=== PATIENT | female | born 1970 | race Two or more races ===

== ENCOUNTER 2024-08-20 11:19 | Emergency (ER) | payer OTHER ==
[2024-08-20 11:31] VITALS: BP 126/81; PULSE 73; RESP 18; TEMP 98.2; BMI 25.3
[2024-08-20 12:15] LABS: EPI CELLS 5 /uL (0-25.1); HYALINE CASTS 0 /uL (0-3.1); URINE APPEARANCE CLEAR; URINE BILIRUBIN 1+ (NEGATIVE); URINE COLOR ORANGE; URINE GLUCOSE (UA) NEGATIVE (NEGATIVE); URINE KETONE NEGATIVE (NEGATIVE); URINE LEUK ESTERASE TRACE (NEGATIVE); URINE NITRITE POSITIVE (NEGATIVE); URINE PROTEIN NEGATIVE (NEGATIVE); URINE RBC 20 /uL (0-23.9); URINE WBC 24 /uL (0-25.8)
[2024-08-20] MEDS ORDERED: KETOROLAC TROMETHAMINE 30 MG/1 ML VIAL ONE (13:23)
[2024-08-20] MEDS: KETOROLAC TROMETHAMINE 30 MG/1 ML VIAL IM ONE (13:41)
[2024-08-20 14:29] LABS: URINE BACTERIA 13 /uL (0-1359)
== END 2024-08-20 14:10 | disposition home or self-care (01) ==
LOC: JER 11:19
DX: N39.0 Urinary tract infection, site not specified (principal); R31.9 Hematuria, unspecified; R35.0 Frequency of micturition
CPT/HCPCS: 81003; 87086; 99283-25